=== PATIENT | male | born 1955 | race African-American/Black ===

== ENCOUNTER 2018-06-28 16:42 | Emergency (ER) | payer SELFPAY ==
[~2018-06-28] VITALS: Ht 182.9 cm; Wt 77.1 kg
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
--- NOTE | 2018-06-28 17:00 | NUR ---
DR FERNANDEZ AT BEDSIDE FOR EVAL
--- NOTE | 2018-06-28 17:15 | NUR ---
BLOOD COLLECTED AND GIVEN TO LAB
--- NOTE | 2018-06-28 17:23 | NUR ---
PT TAKEN TO RADIOLOGY VIA WHEELCHAIR
[2018-06-28 17:30] LABS: BASOPHILS % (AUTO) 0.7 % (0.0-2.0); EOSINOPHILS % (AUTO) 1.8 % (0.0-6.0); HEMATOCRIT 39 % (39-51); HEMOGLOBIN 13.2 g/dL (13.5-17.5); LYMPHOCYTES # (AUTO) 1.3 /CMM (0.8-4.8); LYMPHOCYTES % (AUTO) 24.2 % (20.0-44.0); MEAN CORPUSCULAR HGB CONC 34 g/dl (31.0-36.0); MEAN CORPUSCULAR VOLUME 93 fL (80-96); MONOCYTES # (AUTO) 0.4 /CMM (0.1-1.30); MONOCYTES % (AUTO) 7.7 % (2.0-12.0); NEUTROPHILS # (AUTO) 3.4 /CMM (1.8-8.9); NEUTROPHILS % (AUTO) 65.6 % (43.0-81.0); PLATELET COUNT (AUTO) 225 /CMM (150-450); RED BLOOD CELL COUNT(AUTO) 4.24 MIL/uL (4.5-6.0); WHITE BLOOD COUNT (AUTO) 5.2 K/uL (4.3-11.0)
[2018-06-28 17:43] LABS: CALCIUM, SERUM 8.4 mg/dL (8.5-10.1); CREATININE 1.1 mg/dL (0.6-1.3); POTASSIUM 3.4 mmol/L (3.5-5.1)
[2018-06-28] MEDS ORDERED: ACETAMINOPHEN ES 500 MG TABLET ONE (17:43)
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
[2018-06-28] MEDS: ACETAMINOPHEN ES 500 MG TABLET PO ONE (17:48)
[2018-06-28 17:59] LABS: ALBUMIN 3.9 g/dL (3.4-5.0); BILIRUBIN,DIRECT 0.1 mg/dL (0.0-0.2); BILIRUBIN,TOTAL 0.5 mg/dL (0.2-1.0); TOTAL PROTEIN, SERUM 6.9 g/dL (6.4-8.2)
[2018-06-28] MEDS ORDERED: IOHEXOL-300 100 ML VIAL IV ONE (18:23)
[2018-06-28] MEDS ORDERED: IV NS 0.9% 250 ML IV ONE (18:23)
[2018-06-28] MEDS ORDERED: CT SWABBABLE VALVE TRANS SET 1 EA INFUS.SET MC ONE (18:23)
--- NOTE | 2018-06-28 19:16 | NUR ---
IV removed. Catheter intact and site benign. Pressure and 4x4 applied to site. No bleeding noted.Patient discharged to home in stable condition. Written and verbal after care instructions given. Patient verbalizes understanding of instruction. PT AMBULATORY WITH STEADY GAIT. VSS.
[2018-06-28 19:17] VITALS: BP 128/87
== END 2018-06-28 19:18 | disposition home or self-care (01) ==
LOC: ER 16:44
DX: M54.5 Low back pain (principal); V43.52XA Car driver injured in collision with other type car in traffic accident, initial encounter; Y93.89 Activity, other specified; Y92.413 State road as the place of occurrence of the external cause; Y99.8 Other external cause status
CPT/HCPCS: 36415; 72050-TC; 80048-TC; 80076-TC; 83690-TC; 85025-TC; 85730-TC; A4606; J7050; Q9967; Z7610